=== PATIENT | female | born 1955 | race Caucasian/White ===

== ENCOUNTER 2018-02-18 20:14 | Emergency (ER) | payer MEDICAID ==
[~2018-02-18] VITALS: Ht 157.5 cm; Wt 80.3 kg
[2018-02-18] MEDS ORDERED: DIVALPROEX 250 MG (20:47)
[2018-02-18] MEDS ORDERED: DULOXETINE CAP 60MG (20:47)
[2018-02-18] MEDS ORDERED: OMEPRAZOLE 20 MG (20:47)
--- NOTE | 2018-02-18 20:48 | NUR ---
PT AMBULATED TO ER C/O RT FOOT AND ANKLE PAIN/SWELLING, AND L KNEE PAIN. PT STATES SHE HAD A MECHANICAL FALL YESTERDAY, AND PAIN IS WORSE TODAY. DENIES SYNCOPAL EPISODE. DENIES DIZZINESS.
--- NOTE | 2018-02-18 20:53 | NUR ---
DR BRANNON WHITING MD AT BEDSIDE FOR MSE.
--- NOTE | 2018-02-18 20:56 | NUR ---
RADIOLOGY AT BEDSIDE FOR XRAY.
[2018-02-18] MEDS ORDERED: OXYCODONE/APAP 5-325 MG TABLET PO ONE (21:30)
[2018-02-18] MEDS ORDERED: OXYCODONE/APAP 5-325 MG TABLET ONE (21:30)
--- NOTE | 2018-02-18 22:09 | NUR ---
Patient discharged to home in stable conditon. Written and verbal after care instructions given. Patient verbalizes understanding of instructions. Pt ambulated from ER w/ use of crutches, accompanied by family. No distress noted. Pt took all personal belongings.
[2018-02-18 22:23] VITALS: BP 124/62
== END 2018-02-18 22:23 | disposition home or self-care (01) ==
LOC: ER 20:20
DX: S92.351A Displaced fracture of fifth metatarsal bone, right foot, initial encounter for closed fracture (principal); Z79.899 Other long term (current) drug therapy; W01.0XXA Fall on same level from slipping, tripping and stumbling without subsequent striking against object, initial encounter; Y93.89 Activity, other specified; Y92.89 Other specified places as the place of occurrence of the external cause; Y99.8 Other external cause status
CPT/HCPCS: 73600; 73630; A4663; J7030